=== PATIENT | male | born 1975 | race Two or more races ===

== ENCOUNTER 2018-08-18 09:17 | Emergency (ER) | payer SELFPAY ==
[~2018-08-18] VITALS: Ht 175.3 cm; Wt 91.0 kg
[~2018-08-18 09:17] MED LIST: CLIN150C14 PO; OXYC-302 PO
[2018-08-18 09:24] VITALS: BP 148/91
[2018-08-18] MEDS ORDERED: LIDOCAINE 2%, 20ML SQ ONE (10:00)
[2018-08-18] MEDS ORDERED: LIDOCAINE-MPF 1%, 5ML ONE (10:26)
== END 2018-08-18 11:26 | disposition home or self-care (01) ==
LOC: ED 10:54
DX: S61.012A Laceration without foreign body of left thumb without damage to nail, initial encounter (principal); X58.XXXA Exposure to other specified factors, initial encounter; Y93.89 Activity, other specified; Y92.69 Other specified industrial and construction area as the place of occurrence of the external cause; Y99.0 Civilian activity done for income or pay
CPT/HCPCS: 12001; 99283